=== PATIENT | female | born 1970 | race Caucasian/White ===

== ENCOUNTER 2016-04-09 07:46 | Inpatient (IN) | payer BC ==
--- NOTE | 2016-04-09 10:19 | NUR ---
PATIENT ARRIVED TO UNIT AT 0800 ACCOMPANIED BY DAUGHTER AND FRIEND. EDC OF 04/18/16; 38.5 WEEKS WITH C/O UTC AND VAGINAL DISCHARGE. PATIENT PLACED ON EFM AT 0802 WITH IRREGULAR UTC NOTED. AN AMNISURE WAS DONE AT 0820 [address] WAS NOTED NEGATIVE. [address] DE LA ROSA TO BEDSIDE AT 0830; SVE WAS 5-6/80/0. POC TO ADMIT PATIENT IN ACTIVE LABOR.
[2016-04-09 16:50] VITALS: BP 128/70
[2016-04-09 17:00] VITALS: BP 116/66
[2016-04-09 17:15] VITALS: BP 115/82
[2016-04-09 23:30] VITALS: BP 128/67
[2016-04-10 09:00] VITALS: BP 106/66
--- NOTE | 2016-04-10 09:28 | Provider's Discharge Care Plan ---
Problem, Goal, Plan Problem List 1. normal course Goals: Improve function Instructions: Follow up as directed
--- NOTE | 2016-04-10 09:28 | Provider's Discharge Care Plan ---
Problem, Goal, Plan Problem List 1. normal course Goals: Improve function Instructions: Follow up as directed
--- NOTE | 2016-04-10 21:59 | NUR ---
DCD TO GUEST STATUS AT 5030.
== END 2016-04-10 16:30 | disposition home or self-care (01) | DRG 775 ==
LOC: OBC SRH 07:46 → OB SRH 07:53
PROVIDERS: ADMIT Obstetrics & Gynecology
PROC: 10E0XZZ Delivery of Products of Conception, External Approach (ICD-10-PCS; principal; 2016-04-09)
DX: O80 Encounter for full-term uncomplicated delivery (principal); Z37.0 Single live birth; Z3A.39 39 weeks gestation of pregnancy
CPT/HCPCS: 40010; 83411; 83501; 90074; 92237; 95059

== ENCOUNTER 2016-07-27 13:53 | Emergency (ER) | payer BC ==
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
--- NOTE | 2016-07-27 14:29 | ED ORDER SUMMARY ---
..... Patient: KRYS KO OrderSheet [facility] VisitID: [id number] [address] [place] [address] 45y, F Registration Date/Time: 07/27/2016 ORDER SHEET Weight: 63.5 kg (stated) Allergies: Amoxicillin GENERAL ORDERS: Visual Acuity (14:27 07/27/2016 Oscar A.R.N.P.) (14:38 Eri R.N.) MEDICATION ORDERS: IV FLUIDS: ORDER SHEET NOTES: [Electronically signed by Reyes Vázquez R.N. (14:41 07/27/2016)] [Electronically signed by Mag LightRSwapnaN.PSwapna (17:04 07/27/2016)] [Electronically locked/signed by Reyes Vázquez R.N. (14:41 07/27/2016)]
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
--- NOTE | 2016-07-27 14:29 | ED ORDER SUMMARY ---
..... Patient: KRYS KO OrderSheet [facility] VisitID: [id number] [address] [place] [address] 45y, F Registration Date/Time: 07/27/2016 ORDER SHEET Weight: 63.5 kg (stated) Allergies: Amoxicillin GENERAL ORDERS: Visual Acuity (14:27 07/27/2016 Oscar A.R.N.P.) (14:38 Eri R.N.) MEDICATION ORDERS: IV FLUIDS: ORDER SHEET NOTES: [Electronically signed by Reyes Vázquez R.N. (14:41 07/27/2016)] [Electronically signed by Mag LightRSwapnaN.PSwapna (17:04 07/27/2016)] [Electronically locked/signed by Reyes Vázquez R.N. (14:41 07/27/2016)]
--- NOTE | 2016-07-27 17:05 | ED MED RECONCILIATION SUMMARY ---
Patient: KRYS KO Medication Reconciliation Report [facility] VisitID: [id number] [address] [place] [address] 45y, F Registration Date/Time: 07/27/2016 Weight: 63.5 kg Height/Length: 67 in. BMI: 21.9 ALLERGIES: Amoxicillin The patient's Home Medications are listed below: THE FOLLOWING MEDICATIONS NEED TO BE RECONCILED: Calcium Lang[place] 3 Various Vitamins and Minerals The source(s) of the original Home Medication information: Not obtained. The following Medications were given to the patient in the Emergency Department: None. The following Medications were prescribed to the patient: Polytrim ophthalmic solution: Instill 1 drop into affected eye every 3 hours while awake (max 6 doses per day) for 1 week. Dispense five (5) mL. No refills. Substitution is permissible. -- Mag Light, A.R.N.P. Bactrim DS 800 mg / 160 mg: take 1 tablet orally every 12 hours for 10 days. No refill. -- Mag Light A.R.N.P.
--- NOTE | 2016-07-27 17:05 | ED MAR SUMMARY ---
..... Medication Administration Record [facility] [address], [place] [id number] Patient: KRYS KO Visit ID: [id number] 45y, F Weight: 63.5 kg Height/Length: 67 in BMI: 21.9 ALLERGIES: Amoxicillin
--- NOTE | 2016-07-27 17:05 | ED DISCHARGE INSTRUCTIONS ---
Patient: KRYS KO General Instructions [facility] VisitID: [id number] [address] [place] [address] 45y, F Registration Date/Time: 07/27/2016 Acute sinusitis Chalazion of the left upper eyelid. INSTRUCTIONS Warnings: GENERAL WARNINGS: Return or contact your physician immediately if your condition worsens or changes unexpectedly, if not improving as expected, or if other problems arise. Specifically return if problem worsens. Prescription Medications: Polytrim ophthalmic solution: Instill 1 drop into affected eye every 3 hours while awake (max 6 doses per day) for 1 week. Dispense five (5) mL. No refills. Substitution is permissible. Bactrim DS 800 mg / 160 mg: take 1 tablet orally every 12 hours for 10 days. No refill. Follow-up: Follow up with your doctor in about one week as scheduled even if well. Summary of care provided to patient. Understanding of the discharge instructions verbalized by patient. ADDITIONAL INFORMATION Chalazion There are tiny oil glands in the upper eyelid near the eyelashes. They help lubricate the eyes. If these glands become blocked, a small hard lump forms in the upper eyelid, called a chalazion (stye). The lump can take several weeks to grow, causing pain and tenderness, sensitivity to light, and increased tearing. Home Care: Apply a warm wet towel or compress for 15 minutes at least 4 times a day. This will reduce the swelling and soften the hardened oils blocking the duct. Massage the area gently after applying the compress to promote drainage. Do not try to pop or squeeze the chalazion. Once a day, with eyes closed, clean your eyelids with baby shampoo to help reduce clogging of the duct, as well as help prevent recurrences. If an infection is suspected, an antibiotic drop or ointment will be prescribed. Use this as directed. Follow Up With Your Doctor Or As Advised By Our Staff. If The Chalazion Does Not Resolve In 3-4 Weeks With The Above Care, Or If It Keeps Coming Back, See Your Primary Care Doctor Or Bench Repair Technician (Eye Doctor) For Further Treatment. Steroid Injection Or Surgical Removal May Be Needed. Get Prompt Medical Attention If Any Of The Following Occur: Redness or swelling worsens Both the upper and lower lids of the same eye become swollen Increased eye pain Drainage from the eye Visual changes or blurred vision Headache that persists Fever of 100.4F (38C) or higher, or as directed by your healthcare provider Sinusitis [Abx Tx] The sinuses are air-filled spaces within the bones of the face. They connect to the inside of the nose. Sinusitis is an inflammation of the tissue lining the sinus cavity. Sinus inflammation can occur during a cold or hay-fever (allergies to pollens and other particles in the air) and cause symptoms of sinus congestion and fullness. A sinus infection causes fever, headache and facial pain. There is usually green or yellow drainage from the nose or into the back of the throat (post-nasal drip). Antibiotics are prescribed to treat this condition. Home Care: Drink plenty of water, hot tea, and other liquids to stay well hydrated. This thins the mucus and promotes sinus drainage. Apply heat to the painful areas of the face. Use a towel soaked in hot water. Or, binman the shower and direct the hot spray onto your face. This is a good way to inhale warm water vapor and get heat on your face at the same time. (Cover your mouth and nose with your hands so you can still breathe as you do this.) Use a vaporizer with products such as [employer] VapoRub (contains menthol) at night. Suck on peppermint, menthol or eucalyptus hard candies during the day. An expectorant containing guaifenesin (such as Robitussin), helps to thin the mucus and promote drainage from the sinuses. Qkaa-zrs-hbrulrb decongestants may be used unless a similar medicine was prescribed. Nasal sprays work the fastest. Use one that contains phenylephrine (Otto-synephrine, Sinex and others) or oxymetazoline (Afrin). First blow the nose gently to remove mucus, then apply the drops. Do not use these medicines more often than directed on the label or for more than three days or symptoms may worsen. You may also use tablets containing pseudoephedrine (Sudafed). Many sinus remedies combine ingredients, which may increase side effects. Read the labels or ask the pharmacist for help. NOTE: Persons with high blood pressure should not use decongestants. They can raise blood pressure. Antihistamines are useful if allergies are a cause of your sinusitis. The mildest one is chlorpheniramine (available without a prescription). The dose for adults is 8-12mg three times a day. [NOTE: Do not use chlorpheniramine if you have glaucoma or if you are a man with trouble urinating due to an enlarged prostate.] Claritin (loratidine) is an antihistamine that causes less drowsiness and is a good alternative for daytime use. Do not use nasal rinses or irrigation during an acute sinus infection, unless advised by your doctor. Rinsing may spread the infection to other sinuses. You may use acetaminophen (Tylenol) or ibuprofen (Motrin, Advil) to control pain, unless another pain medicine was prescribed. [ NOTE: If you have chronic liver or kidney disease or ever had a stomach ulcer, talk with your doctor before using these medicines.] (Aspirin should never be used in anyone under 18 years of age who is ill with a fever. It may cause severe liver damage.) Finish the full course, even if you are feeling better after a few days. Follow Up with your doctor or this facility in one week or as instructed by our staff if not improving. Get Prompt Medical Attention if any of the following occur: Facial pain or headache becomes more severe Stiff neck Unusual drowsiness or confusion, or not acting like your normal self Swelling of the forehead or eyelids Vision problems including blurred or double vision Fever of 100.4F (38C) or higher, or as directed by your healthcare provider Seizure Trimethoprim Sulfate, Polymyxin B Sulfate Eye drops, solution What is this medicine? POLYMYXIN B and TRIMETHOPRIM (devaughn i MIX in B and trye METH oh prim) eye drops treat certain eye infections caused by bacteria. How should I use this medicine? This medicine is used in the eye. Follow the directions on the prescription label. Wash your hands before and after use. Tilt your head back slightly. Pull your lower eyelid down gently to form a pouch. Do not touch the tip of the dropper to your eye, fingertips, or other surface. Squeeze the prescribed number of drops into the pouch. Close the eye gently to spread the drops. Use your medicine at regular intervals. Do not take your medicine more often than directed. Use all of your medicine as directed even if you think your are better. Do not skip doses or stop your medicine early. Talk to your cigarette lighter repairer regarding the use of this medicine in children. While this drug may be prescribed for children and infants for selected conditions, precautions do apply. What side effects may I notice from receiving this medicine? Side effects that you should report to your doctor or health manager wound care as soon as possible: burning, stinging, or swelling change in vision or blurred vision that will not go away eye pain itching and redness rash Side effects that usually do not require medical attention (report to your doctor or health manager wound care if they continue or are bothersome): temporary blurred vision after applying temporary watering or stinging What may interact with this medicine? Interactions are not expected. Do not use any other eye products without advice of your doctor or health manager wound care. What if I miss a dose? If you miss a dose, use it as soon as you can. If it is almost time for your next dose, use only that dose. Do not use double or extra doses. Where should I keep my medicine? Keep out of the reach of children. Store at room temperature 15 to 25 degrees C (59 to 77 degrees F). Protect from light. To prevent the spread of infection, it is best to throw away any unused eye drops after you finish the course of treatment. Throw away any unused medicine after the expiration date. What should I tell my health care provider before I take this medicine? They need to know if you have any of these conditions: wear contact lenses an unusual or allergic reaction to polymyxin B, trimethoprim, other medicines, foods, dyes, or preservatives or trying to get breast-feeding What should I watch for while using this medicine? Check with your doctor or health manager wound care if your condition does not get better after 5 days, or if it gets worse. If you wear contact lenses, ask when you can use your lenses again. A burning or stinging reaction that does not go away may mean you are allergic to this product. Stop use and call your doctor or health manager wound care. To prevent the spread of infection, do not share eye products or other personal items with anyone else. Sulfamethoxazole, Trimethoprim Oral tablet What is this medicine? SULFAMETHOXAZOLE; TRIMETHOPRIM or SMX-TMP (suhl fuh meth OK carlos zohl; trye METH oh prim) is a combination of a sulfonamide antibiotic and a second antibiotic, trimethoprim. It is used to treat or prevent certain kinds of bacterial infections. It will not work for colds, flu, or other viral infections. How should I use this medicine? Take this medicine by mouth with a full glass of water. Follow the directions on the prescription label. Take your medicine at regular intervals. Do not take it more often than directed. Do not skip doses or stop your medicine early. Talk to your cigarette lighter repairer regarding the use of this medicine in children. Special care may be needed. This medicine has been used in children as young as 2 months of age. What side effects may I notice from receiving this medicine? Side effects that you should report to your doctor or health manager wound care as soon as possible: allergic reactions like skin rash or hives, swelling of the face, lips, or tongue breathing problems fever or chills, sore throat irregular heartbeat, chest pain joint or muscle pain pain or difficulty passing urine red pinpoint spots on skin redness, blistering, peeling or loosening of the skin, including inside the mouth unusual bleeding or bruising unusually weak or tired yellowing of the eyes or skin Side effects that usually do not require medical attention (report to your doctor or health manager wound care if they continue or are bothersome): diarrhea dizziness headache loss of appetite nausea, vomiting nervousness What may interact with this medicine? Do not take this medicine with any of the following medications: aminobenzoate potassium dofetilide metronidazole This medicine may also interact with the following medications: JUAN inhibitors like benazepril, enalapril, lisinopril, and ramipril cyclosporine digoxin diuretics indomethacin medicines for diabetes methenamine methotrexate phenytoin potassium supplements pyrimethamine sulfinpyrazone tricyclic antidepressants warfarin What if I miss a dose? If you miss a dose, take it as soon as you can. If it is almost time for your next dose, take only that dose. Do not take double or extra doses. Where should I keep my medicine? Keep out of the reach of children. Store at room temperature between 20 to 25 degrees C (68 to 77 degrees F). Protect from light. Throw away any unused medicine after the expiration date. What should I tell my health care provider before I take this medicine? They need to know if you have any of these conditions: anemia asthma being treated with anticonvulsants if you frequently drink alcohol containing drinks kidney disease liver disease low level of folic acid or lluzlfh-[id number] dehydrogenase poor nutrition or malabsorption porphyria severe allergies thyroid disorder an unusual or allergic reaction to sulfamethoxazole, trimethoprim, sulfa drugs, other medicines, foods, dyes, or preservatives or trying to get breast-feeding What should I watch for while using this medicine? Tell your doctor or health manager wound care if your symptoms do not improve. Drink several glasses of water a day to reduce the risk of kidney problems. Do not treat diarrhea with over the counter products. Contact your doctor if you have diarrhea that lasts more than 2 days or if it is severe and watery. This medicine can make you more sensitive to the sun. Keep out of the sun. If you cannot avoid being in the sun, wear protective clothing and use a sunscreen. Do not use sun lamps or tanning beds/booths. You have been given the following additional information: Chalazion Sinusitis, Abx Tx Trimethoprim Sulfate, Polymyxin B Sulfate Eye drops, solution Sulfamethoxazole, Trimethoprim Oral tablet (Electronically signed by Mag Light [email or web address] 07/27/2016 17:04)
--- NOTE | 2016-07-27 17:05 | ED DISCHARGE INSTRUCTIONS ---
Patient: KRYS KO General Instructions [facility] VisitID: [id number] [address] [place] [address] 45y, F Registration Date/Time: 07/27/2016 Acute sinusitis Chalazion of the left upper eyelid. INSTRUCTIONS Warnings: GENERAL WARNINGS: Return or contact your physician immediately if your condition worsens or changes unexpectedly, if not improving as expected, or if other problems arise. Specifically return if problem worsens. Prescription Medications: Polytrim ophthalmic solution: Instill 1 drop into affected eye every 3 hours while awake (max 6 doses per day) for 1 week. Dispense five (5) mL. No refills. Substitution is permissible. Bactrim DS 800 mg / 160 mg: take 1 tablet orally every 12 hours for 10 days. No refill. Follow-up: Follow up with your doctor in about one week as scheduled even if well. Summary of care provided to patient. Understanding of the discharge instructions verbalized by patient. ADDITIONAL INFORMATION Chalazion There are tiny oil glands in the upper eyelid near the eyelashes. They help lubricate the eyes. If these glands become blocked, a small hard lump forms in the upper eyelid, called a chalazion (stye). The lump can take several weeks to grow, causing pain and tenderness, sensitivity to light, and increased tearing. Home Care: Apply a warm wet towel or compress for 15 minutes at least 4 times a day. This will reduce the swelling and soften the hardened oils blocking the duct. Massage the area gently after applying the compress to promote drainage. Do not try to pop or squeeze the chalazion. Once a day, with eyes closed, clean your eyelids with baby shampoo to help reduce clogging of the duct, as well as help prevent recurrences. If an infection is suspected, an antibiotic drop or ointment will be prescribed. Use this as directed. Follow Up With Your Doctor Or As Advised By Our Staff. If The Chalazion Does Not Resolve In 3-4 Weeks With The Above Care, Or If It Keeps Coming Back, See Your Primary Care Doctor Or Floor Surfacer (Eye Doctor) For Further Treatment. Steroid Injection Or Surgical Removal May Be Needed. Get Prompt Medical Attention If Any Of The Following Occur: Redness or swelling worsens Both the upper and lower lids of the same eye become swollen Increased eye pain Drainage from the eye Visual changes or blurred vision Headache that persists Fever of 100.4F (38C) or higher, or as directed by your healthcare provider Sinusitis [Abx Tx] The sinuses are air-filled spaces within the bones of the face. They connect to the inside of the nose. Sinusitis is an inflammation of the tissue lining the sinus cavity. Sinus inflammation can occur during a cold or hay-fever (allergies to pollens and other particles in the air) and cause symptoms of sinus congestion and fullness. A sinus infection causes fever, headache and facial pain. There is usually green or yellow drainage from the nose or into the back of the throat (post-nasal drip). Antibiotics are prescribed to treat this condition. Home Care: Drink plenty of water, hot tea, and other liquids to stay well hydrated. This thins the mucus and promotes sinus drainage. Apply heat to the painful areas of the face. Use a towel soaked in hot water. Or, international marketing intern the shower and direct the hot spray onto your face. This is a good way to inhale warm water vapor and get heat on your face at the same time. (Cover your mouth and nose with your hands so you can still breathe as you do this.) Use a vaporizer with products such as ividence VapoRub (contains menthol) at night. Suck on peppermint, menthol or eucalyptus hard candies during the day. An expectorant containing guaifenesin (such as Robitussin), helps to thin the mucus and promote drainage from the sinuses. Khmy-jyg-leqovcn decongestants may be used unless a similar medicine was prescribed. Nasal sprays work the fastest. Use one that contains phenylephrine (Otto-synephrine, Sinex and others) or oxymetazoline (Afrin). First blow the nose gently to remove mucus, then apply the drops. Do not use these medicines more often than directed on the label or for more than three days or symptoms may worsen. You may also use tablets containing pseudoephedrine (Sudafed). Many sinus remedies combine ingredients, which may increase side effects. Read the labels or ask the pharmacist for help. NOTE: Persons with high blood pressure should not use decongestants. They can raise blood pressure. Antihistamines are useful if allergies are a cause of your sinusitis. The mildest one is chlorpheniramine (available without a prescription). The dose for adults is 8-12mg three times a day. [NOTE: Do not use chlorpheniramine if you have glaucoma or if you are a man with trouble urinating due to an enlarged prostate.] Claritin (loratidine) is an antihistamine that causes less drowsiness and is a good alternative for daytime use. Do not use nasal rinses or irrigation during an acute sinus infection, unless advised by your doctor. Rinsing may spread the infection to other sinuses. You may use acetaminophen (Tylenol) or ibuprofen (Motrin, Advil) to control pain, unless another pain medicine was prescribed. [ NOTE: If you have chronic liver or kidney disease or ever had a stomach ulcer, talk with your doctor before using these medicines.] (Aspirin should never be used in anyone under 18 years of age who is ill with a fever. It may cause severe liver damage.) Finish the full course, even if you are feeling better after a few days. Follow Up with your doctor or this facility in one week or as instructed by our staff if not improving. Get Prompt Medical Attention if any of the following occur: Facial pain or headache becomes more severe Stiff neck Unusual drowsiness or confusion, or not acting like your normal self Swelling of the forehead or eyelids Vision problems including blurred or double vision Fever of 100.4F (38C) or higher, or as directed by your healthcare provider Seizure Trimethoprim Sulfate, Polymyxin B Sulfate Eye drops, solution What is this medicine? POLYMYXIN B and TRIMETHOPRIM (devaughn i MIX in B and trye METH oh prim) eye drops treat certain eye infections caused by bacteria. How should I use this medicine? This medicine is used in the eye. Follow the directions on the prescription label. Wash your hands before and after use. Tilt your head back slightly. Pull your lower eyelid down gently to form a pouch. Do not touch the tip of the dropper to your eye, fingertips, or other surface. Squeeze the prescribed number of drops into the pouch. Close the eye gently to spread the drops. Use your medicine at regular intervals. Do not take your medicine more often than directed. Use all of your medicine as directed even if you think your are better. Do not skip doses or stop your medicine early. Talk to your dance costume designer regarding the use of this medicine in children. While this drug may be prescribed for children and infants for selected conditions, precautions do apply. What side effects may I notice from receiving this medicine? Side effects that you should report to your doctor or health hospice home care coordinator as soon as possible: burning, stinging, or swelling change in vision or blurred vision that will not go away eye pain itching and redness rash Side effects that usually do not require medical attention (report to your doctor or health hospice home care coordinator if they continue or are bothersome): temporary blurred vision after applying temporary watering or stinging What may interact with this medicine? Interactions are not expected. Do not use any other eye products without advice of your doctor or health hospice home care coordinator. What if I miss a dose? If you miss a dose, use it as soon as you can. If it is almost time for your next dose, use only that dose. Do not use double or extra doses. Where should I keep my medicine? Keep out of the reach of children. Store at room temperature 15 to 25 degrees C (59 to 77 degrees F). Protect from light. To prevent the spread of infection, it is best to throw away any unused eye drops after you finish the course of treatment. Throw away any unused medicine after the expiration date. What should I tell my health care provider before I take this medicine? They need to know if you have any of these conditions: wear contact lenses an unusual or allergic reaction to polymyxin B, trimethoprim, other medicines, foods, dyes, or preservatives or trying to get breast-feeding What should I watch for while using this medicine? Check with your doctor or health hospice home care coordinator if your condition does not get better after 5 days, or if it gets worse. If you wear contact lenses, ask when you can use your lenses again. A burning or stinging reaction that does not go away may mean you are allergic to this product. Stop use and call your doctor or health hospice home care coordinator. To prevent the spread of infection, do not share eye products or other personal items with anyone else. Sulfamethoxazole, Trimethoprim Oral tablet What is this medicine? SULFAMETHOXAZOLE; TRIMETHOPRIM or SMX-TMP (suhl fuh meth OK carlos zohl; trye METH oh prim) is a combination of a sulfonamide antibiotic and a second antibiotic, trimethoprim. It is used to treat or prevent certain kinds of bacterial infections. It will not work for colds, flu, or other viral infections. How should I use this medicine? Take this medicine by mouth with a full glass of water. Follow the directions on the prescription label. Take your medicine at regular intervals. Do not take it more often than directed. Do not skip doses or stop your medicine early. Talk to your dance costume designer regarding the use of this medicine in children. Special care may be needed. This medicine has been used in children as young as 2 months of age. What side effects may I notice from receiving this medicine? Side effects that you should report to your doctor or health hospice home care coordinator as soon as possible: allergic reactions like skin rash or hives, swelling of the face, lips, or tongue breathing problems fever or chills, sore throat irregular heartbeat, chest pain joint or muscle pain pain or difficulty passing urine red pinpoint spots on skin redness, blistering, peeling or loosening of the skin, including inside the mouth unusual bleeding or bruising unusually weak or tired yellowing of the eyes or skin Side effects that usually do not require medical attention (report to your doctor or health hospice home care coordinator if they continue or are bothersome): diarrhea dizziness headache loss of appetite nausea, vomiting nervousness What may interact with this medicine? Do not take this medicine with any of the following medications: aminobenzoate potassium dofetilide metronidazole This medicine may also interact with the following medications: JUAN inhibitors like benazepril, enalapril, lisinopril, and ramipril cyclosporine digoxin diuretics indomethacin medicines for diabetes methenamine methotrexate phenytoin potassium supplements pyrimethamine sulfinpyrazone tricyclic antidepressants warfarin What if I miss a dose? If you miss a dose, take it as soon as you can. If it is almost time for your next dose, take only that dose. Do not take double or extra doses. Where should I keep my medicine? Keep out of the reach of children. Store at room temperature between 20 to 25 degrees C (68 to 77 degrees F). Protect from light. Throw away any unused medicine after the expiration date. What should I tell my health care provider before I take this medicine? They need to know if you have any of these conditions: anemia asthma being treated with anticonvulsants if you frequently drink alcohol containing drinks kidney disease liver disease low level of folic acid or fhavwia-0-hptavnmrt dehydrogenase poor nutrition or malabsorption porphyria severe allergies thyroid disorder an unusual or allergic reaction to sulfamethoxazole, trimethoprim, sulfa drugs, other medicines, foods, dyes, or preservatives or trying to get breast-feeding What should I watch for while using this medicine? Tell your doctor or health hospice home care coordinator if your symptoms do not improve. Drink several glasses of water a day to reduce the risk of kidney problems. Do not treat diarrhea with over the counter products. Contact your doctor if you have diarrhea that lasts more than 2 days or if it is severe and watery. This medicine can make you more sensitive to the sun. Keep out of the sun. If you cannot avoid being in the sun, wear protective clothing and use a sunscreen. Do not use sun lamps or tanning beds/booths. You have been given the following additional information: Chalazion Sinusitis, Abx Tx Trimethoprim Sulfate, Polymyxin B Sulfate Eye drops, solution Sulfamethoxazole, Trimethoprim Oral tablet (Electronically signed by Mag Light A.[email or web address] 07/27/2016 17:04)
--- NOTE | 2016-07-27 17:05 | ED MED RECONCILIATION SUMMARY ---
Patient: KRYS KO Medication Reconciliation Report [facility] VisitID: [id number] [address] [place] [address] 45y, F Registration Date/Time: 07/27/2016 Weight: 63.5 kg Height/Length: 67 in. BMI: 21.9 ALLERGIES: Amoxicillin The patient's Home Medications are listed below: THE FOLLOWING MEDICATIONS NEED TO BE RECONCILED: Calcium [place] 3 Various Vitamins and Minerals The source(s) of the original Home Medication information: Not obtained. The following Medications were given to the patient in the Emergency Department: None. The following Medications were prescribed to the patient: Polytrim ophthalmic solution: Instill 1 drop into affected eye every 3 hours while awake (max 6 doses per day) for 1 week. Dispense five (5) mL. No refills. Substitution is permissible. -- Mag Light, A.R.N.P. Bactrim DS 800 mg / 160 mg: take 1 tablet orally every 12 hours for 10 days. No refill. -- Mag Light A.R.N.P.
--- NOTE | 2016-07-27 17:05 | ED MAR SUMMARY ---
..... Medication Administration Record [facility] [address] [place], [place] [id number] Patient: KRYS KO Visit ID: [id number] 45y, F Weight: 63.5 kg Height/Length: 67 in BMI: 21.9 ALLERGIES: Amoxicillin
== END 2016-07-27 14:40 | disposition home or self-care (01) ==
LOC: ED SRH 13:53
DX: H00.14 Chalazion left upper eyelid (principal); J01.90 Acute sinusitis, unspecified; Z88.1 Allergy status to other antibiotic agents